=== PATIENT | male | born 1935 | race Hispanic/Latino ===

== ENCOUNTER → 2020-01-17 | Outpatient (CLI) | payer OTHER | END | disposition home or self-care (01) | LOC: RAH 13:14 → EDBD 13:30 | PROVIDERS: ATTEND Podiatrist | DX: E11.621 Type 2 diabetes mellitus with foot ulcer (principal); E11.51 Type 2 diabetes mellitus with diabetic peripheral angiopathy without gangrene; B35.1 Tinea unguium | CPT/HCPCS: 93922 ==

== ENCOUNTER → 2023-06-18 | Outpatient (CLI) | payer OTHER ==
[~2023-06-18] MED LIST: IOHEXOL 350 MG/ML 100ML INFUS..BTL IV ONE; IOHEXOL-350 50ML VIAL IV ONE
== END | disposition home or self-care (01) ==
LOC: RAH 07:37
PROVIDERS: ATTEND Internal Medicine Cardiovascular Disease
DX: I82.431 Acute embolism and thrombosis of right popliteal vein (principal); I70.8 Atherosclerosis of other arteries; I70.0 Atherosclerosis of aorta; I70.1 Atherosclerosis of renal artery; I72.4 Aneurysm of artery of lower extremity; I70.203 Unspecified atherosclerosis of native arteries of extremities, bilateral legs
CPT/HCPCS: 75635; Q9967 ×2